=== PATIENT | female | born 1980 | race Caucasian/White ===

== ENCOUNTER 2018-05-24 19:45 | Emergency (ER) | payer MEDICAID, SELFPAY ==
[2018-05-24 19:49] VITALS: BP 124/92; PULSE 85; RESP 18; TEMP 36.4; O2SAT 96
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
[2018-05-24] MEDS: oxyCODONE 5 MG TAB PO (20:45)
--- NOTE | 2018-05-25 10:54 | PDOC.ERCMPRO ---
Care Management Progress Note `05/25/18-Pt seen on for peripheal neuropathy. Pt needs to establish a PCP, faxed to [facility] and referral f/u request sent to Neurology.
== END 2018-05-24 20:54 | disposition home or self-care (01) ==
PROVIDERS: Emergency Provider Physician Assistant
DX: G62.9 Polyneuropathy, unspecified (principal); Z79.891 Long term (current) use of opiate analgesic
CPT/HCPCS: 29125; 99284; 99283; L3908